=== PATIENT | female | born 1940 | race Caucasian/White ===

== ENCOUNTER → 2019-03-11 | Outpatient (CLI) | payer OTHER ==
[~2019-03-11] VITALS: Ht 157.5 cm; Wt 79.4 kg
[~2019-03-11] MED LIST: AMBIEN 5 MG TABL5 M1 PO; ASPIR 8181 MG PO; EFFEXOR XR75 MG PO; FLOVENT HFA12 G1 INH; GABAPENTIN800 M1 PO; LIPITOR40 MG PO; LISINOPRIL10 MG PO; NORVASC5 M1 PO; PROTONIX40 M1 PO; VELCADE3.5 MG IV; VENTOLIN HFA 1818 GM INH; ZOVIRAX400 MG PO
--- NOTE | 2019-03-13 19:06 | PATH ---
[facility] [address] [address] PATHOLOGY RPT PROCEDURE Name: DAYAN JOE JODI Room #: REG RONNIE Carrie.#: [id number] ������������������ Admission: 03/11/19 ������������������ Date of : 38 Discharge: Report #: [id number] Path Case #: [id number] [facility] Accession Number: [id number] . 01 Material submitted: . PART A: small bowel - SMALL BOWEL BIOPSY R/O CELIAC PART B: stomach - RANDOM GASTRIC BIOPSY R/O GASTRITIS PART C: stomach - GASTRIC POLYPS PART D: small bowel - SMALL BOWEL POLYP . 01 Clinical history: . Preop DX: Abd pain/diarrhea Postop DX: Polyps A. R/O celiac B. R/O gastritis . 02 Diagnosis: A. Small bowel mucosa, rule out celiac, endoscopic biopsy: - No diagnostic abnormalities present. - Negative for villous blunting or increase in intraepithelial lymphocytes. . B. Gastric mucosa, random gastric, rule out gastritis, endoscopic biopsy: - Mild reactive gastropathy. - Negative for intestinal metaplasia or atrophy. - Negative for Helicobacter pylori (properly controlled immunohistochemical stain performed). . C. Polyps, gastric polyps, endoscopic biopsy: - Compatible with fundic gland polyps. - Negative for dysplasia or malignancy. . D. Polyp, small bowel polyp, endoscopic biopsy: - Tubular adenoma. - Negative for high-grade dysplasia. (IUV:pit; 03/13/2019) QTP 03/13/2019 1230 Local . 02 Electronically signed: . Alison Melendez MD, Pathologist NPI- [id number] . 01 Gross description: . A. Received in formalin labeled "Dayan Joe, small bowel BX," are seven segments of dunaway soft tissue measuring 1.1 x 0.7 x 0.2 cm in aggregate dimensions and ranging from 0.2 to 0.4 cm in maximum dimension. The specimen is submitted entirely in cassette [place]1. [place] [address] PATHOLOGY RPT PROCEDURE Name: DAYAN JOE JODI Room #: REG CLI ..#: [id number] ������������������ Admission: 03/11/19 ������������������ Date of : 38 Discharge: Report #: [id number] Path Case #: [id number] . B. Received in formalin labeled "Dayan Joe, random gastric BX," are six segments of dunaway soft tissue measuring 1.1 x 0.6 x 0.2 cm in aggregate dimensions and ranging from 0.3 to 0.7 cm in maximum dimension. The specimen is submitted entirely in cassette B1. . C. Received in formalin labeled "Dayan Joe, gastric polyps," are five segments of dunaway soft tissue measuring 1.0 x 0.4 x 0.2 cm in aggregate dimensions and ranging from 0.2 to 0.5 cm in maximum dimension. The specimen is submitted entirely in cassette C1. . D. Received in formalin labeled "Dayan Joe, small bowel polyp," are two segments of dunaway soft tissue measuring 0.1 x 0.1 x 0.1 cm and 0.4 x 0.3 x 0.2 cm in greatest dimensions. The specimen is submitted entirely in cassette D1. The smaller segment may not survive processing. ([facility]; 03/12/2019) XAR/XAR 03/12/2019 0714 Local . 02 Pathologist provided ICD-10: K31.9, K31.7, D12.6, R10.9, R19.7 . 02 CPT . 812903, 902218, 188025, [id number], [id number] Specimen Comment: A courtesy copy of this report has been sent to Specimen Comment: [phone]. Specimen Comment: Report sent to Performed at: [address], [place] [id number] MD Deny Mccann MD Phone: [phone] Performed at: [address] [id number] MD Alison Melendez MD Phone: [phone]
== END | disposition home or self-care (01) ==
LOC: GI 08:38
DX: D13.2 Benign neoplasm of duodenum (principal); K31.7 Polyp of stomach and duodenum; K29.50 Unspecified chronic gastritis without bleeding; K31.89 Other diseases of stomach and duodenum; J45.909 Unspecified asthma, uncomplicated; I10 Essential (primary) hypertension; E78.00 Pure hypercholesterolemia, unspecified; K21.9 Gastro-esophageal reflux disease without esophagitis; G25.81 Restless legs syndrome; Z87.891 Personal history of nicotine dependence; Z96.643 Presence of artificial hip joint, bilateral; Z98.890 Other specified postprocedural states; Z88.0 Allergy status to penicillin; Z88.8 Allergy status to other drugs, medicaments and biological substances; Z79.82 Long term (current) use of aspirin; Z79.899 Other long term (current) drug therapy
CPT/HCPCS: 62110; 62900